=== PATIENT | male | born 1990 | race Caucasian/White ===

== ENCOUNTER 2020-07-10 12:06 | Emergency (ER) | payer OTHER, SELFPAY ==
[2020-07-10 12:30] VITALS: BP 154/94; PULSE 92; RESP 20; TEMP 36.9; O2SAT 97; BMI 40.8
--- NOTE | 2020-07-10 13:18 | HMH.EDUTC ---
[facility] [place] Disposition Clinical Impression: Dental abscess Disposition: Home, Self-Care Condition on Discharge: Good Instructions: DI for Dental Pain Additional Instructions: call [facility] office in am for rene if symptoms worsen return or be seen in ed Prescriptions: clindamycin HCL [Clindamycin HCl] 300 mg PO TID 7 Days #21 cap Prescription Printed Referrals: Sai Hammond [Primary Care Provider] - Time of Disposition: 14:06 Medical Decision Making - Samuel Inquiry Pt receiving controlled substance: No Vital Signs: 07/10/20 12:30 07/10/20 13:57 Temperature 98.5 F 98.5 F Temperature Source Oral Pulse Rate 92 H Pulse Rate [Right Brachial] 92 H Respiratory Rate 20 20 Blood Pressure 154/94 H Blood Pressure [Right Arm] 154/94 H Blood Pressure Mean [Right Arm] 114 Blood Pressure Source [Right Arm] Automatic Cuff Blood Pressure Position [Right Arm] Sitting 02 Sat by Pulse Oximetry 97 Oxygen Delivery Method Room Air Orders (Tests/Meds): ED MEDICATIONS Generic Name Dose Route Start Last Admin Trade Name Freq PRN Reason Stop Dose Admin Benzocaine/Butamben/Tetracaine HCl 1 gm 07/10/20 13:45 07/10/20 13:40 Tetracaine/Benzocaine/Butamben 56 Gm [place] TP 08/09/20 13:44 1 gm NEEDED PRN Administration Mouth Irritation Discontinued Medications Generic Name Dose Route Start Last Admin Trade Name Freq PRN Reason Stop Dose Admin Ceftriaxone Sodium 1 gm 07/10/20 13:24 07/10/20 13:40 Ceftriaxone 1gm Vial IM 07/10/20 13:25 1 gm ONCE ONE Administration Protocol Dexamethasone Sodium Phosphate 4 mg 07/10/20 13:24 07/10/20 13:40 Dexamethasone 4mg/Ml 1ml Vial IM 07/10/20 13:25 4 mg ONCE ONE Administration Lidocaine HCl 0 ml 07/10/20 13:24 07/10/20 13:40 Lidocaine 1% 5ml Pf Vial IM 07/10/20 13:25 2.5 ml ONCE ONE Administration Lidocaine HCl 15 ml 07/10/20 13:24 07/10/20 13:40 Lidocaine 2% Viscous Clementina 15ml Udc PO 07/10/20 13:25 15 ml ONCE ONE Administration - Physician Consults Physician Consulted: dr ramirez Time: 13:51 Reason -: Other Comment/Response: he is to call office in am he will see him. recommends clindamyicin 300 mg tid x7 days [facility] [place] HPI - General Chief complaint: Urgent Treatment Center Stated complaint: right jaw swollen and neck pain Time Seen by Provider: 07/10/20 13:18 Mode of Arrival: Ambulatory Source of Information: Patient Limitations: No Limitations Description of Symptoms (Recalled from Triage Doc. by RN): PATIENT C/O SWELLING AND PAIN TO RIGHT SIDE OF MOUTH SINCE SATURDAY; HE IS HAVING DIFFICULTY SWALLOWING HEENT Symptoms (Recalled from RN notes): Yes Resp Symptoms (Recalled from RN notes): No Skin Symptoms (Recalled from RN notes): No MS Symptoms (Recalled from RN notes): No Functional Status (Recalled from RN notes): WNL - History of Present Illness Provider Complaint: 30 yr old male presnets for rt jaw and neck pain. pt states he has a broken tooth and thinks it could be that - Related Data Home Medications Medication Instructions Recorded Confirmed Lisinopril/Hydrochlorothiazide 1 tab PO DAILY 07/10/20 07/10/20 [Lisinopril-Hctz 20-25 mg Tab*] Previous Rx's Medication Instructions Recorded clindamycin HCL [Clindamycin HCl] 300 mg PO TID 7 Days #21 cap 07/10/20 Allergies Allergy/AdvReac Type Severity Reaction Status Date / Time No Known Allergies Allergy Verified 07/10/20 12:56 - Worker's Comp Is this a Worker's Comp case?: No [facility] History - Hepatitis A Screen Drug use history?: No High risk sexual behaviors?: No History of sexually transmitted infection?: No Currently employed?: No Childcare worker?: No Do you have indoor plumbing?: Yes Do you have electricity?: Yes Attestation statement:: This patient has been screened for Hepatitis A risk factors. I have reviewed the patient's past medical history: Yes - Social History Alcohol Intake: never Occupa
[2020-07-10 13:57] VITALS: BP 154/94; PULSE 92; RESP 20; TEMP 36.9; O2SAT 97
== END 2020-07-10 14:10 | disposition home or self-care (01) ==
PROVIDERS: Emergency Provider Nurse Practitioner Family; PCP Pediatrics
DX: K04.7 Periapical abscess without sinus (principal); I10 Essential (primary) hypertension
CPT/HCPCS: 96372; 99201

== ENCOUNTER 2021-12-23 13:55 | Emergency (ER) | payer OTHER, SELFPAY ==
[2021-12-23 14:10] VITALS: BP 146/85; PULSE 93; RESP 19; TEMP 36.8; O2SAT 98; BMI 42.2
--- NOTE | 2021-12-23 14:31 | HMH.EDUTC ---
[facility] [place] Disposition Clinical Impression: Cellulitis of left hand Infection of right hand due to bite Qualifiers: Encounter type: initial encounter Qualified Code(s): S61.451A - Open bite of right hand, initial encounter Disposition: Home, Self-Care Condition on Discharge: Good Instructions: Cellulitis Additional Instructions: Take the medications as directed and apply the triamcinolone cream as directed Keep your hand elevated as much as tolerated. Rest your hand and keep the wounds clean and dry. Follow up with your regular doctor. GO TO THE ER FOR ANY WORSENING SYMPTOMS OR CONCERNS Prescriptions: methylPREDNISolone [Medrol] 4 mg PO DIRECTED 6 Days #21 packet Transmission Status: Received by [facility][id number] Triamcinolone Acetonide 1 applicatio TP TIDP PRN 7 Days #1 gm PRN Reason: Itching Transmission Status: Received by [facility] #[id number] Referrals: Sai Hammond [Primary Care Provider] - Forms: Work/School Release Time of Disposition: 14:55 Medical Decision Making - Medical Records Medical records reviewed: No: I reviewed the patient's medical records. - Samuel Inquiry Pt receiving controlled substance: No Vital Signs: 12/23/21 14:10 12/23/21 14:53 Temperature 98.2 F 98.2 F Temperature Source Oral Pulse Rate 93 H Pulse Rate [Left Radial] 93 H Respiratory Rate 19 19 Blood Pressure 146/85 H Blood Pressure [Right Arm] 146/85 H Blood Pressure Mean [Right Arm] 105 02 Sat by Pulse Oximetry 98 Orders (Tests/Meds): ED MEDICATIONS Discontinued Medications Generic Name Dose Route Start Last Admin Trade Name Freq PRN Reason Stop Dose Admin Methylprednisolone Sodium Succinate 125 mg 12/23/21 14:36 12/23/21 14:48 Methylprednisolone Sod Succ 125mg Vial IM 12/23/21 14:37 125 mg ONCE ONE Administration [facility] [place] HPI - General Stated complaint: rt hand swelling Time Seen by Provider: 12/23/21 14:31 Mode of Arrival: Ambulatory Source of Information: Patient Limitations: No Limitations Description of Symptoms (Recalled from Triage Doc. by RN): pt here for bug bite. right hand, and left elbow. where the bug bit him it is swollen and red. pt was bit yesterday HEENT Symptoms (Recalled from RN notes): No Resp Symptoms (Recalled from RN notes): No Skin Symptoms (Recalled from RN notes): Yes MS Symptoms (Recalled from RN notes): No Functional Status (Recalled from RN notes): wnl - History of Present Illness Provider Complaint: He states that he was stung or bit by an insect on the top of he right hand 2 days ago. Since then he has had right hand pain and swelling. He denies any other sting or complaints. - Related Data Home Medications Medication Instructions Recorded Confirmed Lisinopril/Hydrochlorothiazide 1 tab PO DAILY 07/10/20 07/10/20 [Lisinopril-Hctz 20-25 mg Tab*] Previous Rx's Medication Instructions Recorded clindamycin HCL [Clindamycin HCl] 300 mg PO TID 7 Days #21 cap 07/10/20 Triamcinolone Acetonide 1 applicatio TP TIDP PRN 7 Days #1 12/23/21 gm methylPREDNISolone [Medrol] 4 mg PO DIRECTED 6 Days #21 12/23/21 packet Allergies Allergy/AdvReac Type Severity Reaction Status Date / Time No Known Allergies Allergy Verified 12/23/21 14:13 - Worker's Comp Is this a Worker's Comp case?: No [facility] History - Hepatitis A Screen Attestation statement:: This patient has been screened for Hepatitis A risk factors. I have reviewed the patient's past medical history: Yes - Social History Alcohol Intake: never Occupational Status: other ROS Obtained: Yes All systems reviewed & no additional complaints - Constitutional Constitutional: Denies chills, Denies fever(s) - Musculoskeletal Musculoskeletal: Denies joint pain - Integumentary/Breasts Skin/Breast: Reports as per HPI Physical Exam - General General appearance: alert, in no apparent distress - Head Head exam: atraumatic, normocephalic, fidel
[2021-12-23 14:53] VITALS: BP 146/85; PULSE 93; RESP 19; TEMP 36.8
== END 2021-12-23 15:07 | disposition home or self-care (01) ==
PROVIDERS: Emergency Provider Nurse Practitioner Family; PCP Pediatrics
DX: S61.451A Open bite of right hand, initial encounter (principal); L03.114 Cellulitis of left upper limb; Z79.51 Long term (current) use of inhaled steroids; Z79.899 Other long term (current) drug therapy; W57.XXXA Bitten or stung by nonvenomous insect and other nonvenomous arthropods, initial encounter
CPT/HCPCS: 96372; 99213; G0463